=== PATIENT | female | born 1990 | race African-American/Black ===

== ENCOUNTER 2024-06-20 12:12 | Emergency (ER) | payer OTHER ==
[~2024-06-20] VITALS: Ht 157.5 cm; Wt 58.0 kg
[2024-06-20 12:24] VITALS: TEMP 98.2
[2024-06-20] MEDS: METHOCARBAMOL 500 MG TABLET PO ONE (13:18)
[2024-06-20] MEDS: IBUPROFEN 600 MG TABLET PO ONE (13:18)
[2024-06-20] MEDS: LIDOCAINE 5% TRANSDERMAL PATCH TD ONE (13:19)
[2024-06-20 14:21] VITALS: BP 124/87; PULSE 75; RESP 18; O2SAT 99
== END 2024-06-20 15:59 | disposition home or self-care (01) ==
LOC: EMS 12:24
DX: R07.89 Other chest pain (principal); M25.512 Pain in left shoulder; M79.602 Pain in left arm
CPT/HCPCS: 99284; Z7502; Z7610